=== PATIENT | female | born 1990 | race Caucasian/White ===

== ENCOUNTER 2017-12-22 14:14 | Outpatient (CLI) | payer BC ==
[~2017-12-22] VITALS: Ht 167.6 cm; Wt 94.0 kg
[2017-12-22 14:31] VITALS: BP 133/80
[2017-12-22] MEDS ORDERED: PRENATAL TABLE1 EAC3 PO (15:19)
[2017-12-22 15:36] LABS: APPEARANCE SL.HAZY ((CLEAR)); BILIRUBIN NEGATIVE; BLOOD NEGATIVE; COLOR YELLOW ((YELLOW)); GLUCOSE (STRIP) 50; KETONES NEGATIVE; LEUKOCYTES MODERATE; NITRITE NEGATIVE; PROTEIN (STRIP) NEGATIVE; SPECIFIC GRAVITY 1.016 (1.000-1.030); UROBILINOGEN 0.2 MG/DL (0.2-1.0)
[2017-12-22 15:53] LABS: BACTERIA RARE /HPF; EPITHELIAL CELLS 1+ /HPF; MUCUS TRACE /LPF; UCUL ADDED? YES
[2017-12-22 16:04] VITALS: BP 130/73
[2017-12-22 18:25] VITALS: BP 117/77
[2017-12-22 20:30] VITALS: BP 125/76
== END 2017-12-22 21:30 | disposition home or self-care (01) ==
LOC: LDRP-OP 14:14 → 2WEST 14:15 → LDRP-OP 02-02 16:05
PROVIDERS: Advanced Practice Midwife
DX: O36.8130 Decreased fetal movements, third trimester, not applicable or unspecified (principal); R10.31 Right lower quadrant pain; Z3A.38 38 weeks gestation of pregnancy
CPT/HCPCS: 59025; 76815; 76818; 81003; 87086; G0378; J7120

== ENCOUNTER 2018-01-11 09:48 | Inpatient (IN) | payer BC ==
[~2018-01-11] VITALS: Ht 167.6 cm; Wt 95.7 kg
[2018-01-11] VITALS (27 sets, daily range): BP systolic 109–148; BP diastolic 63–97
[~2018-01-11 09:48] MED LIST: PRENATAL TABLE1 EAC3 PO
[2018-01-11 11:50] LABS: BASOPHIL (%) 0.2 % (0-1); EOSINOPHIL COUNT 0.1 K/uL (0-0.3); HEMATOCRIT 40.8 % (36.0-46.0); HEMOGLOBIN 14.4 G/DL (11.9-15.5); IMMATURE GRANULOCYTE (%) 0.6 % (0.0-0.7); LYMPHOCYTE COUNT 1.3 K/uL (1.0-2.8); MCH 32.7 PG (29.0-34.0); MCHC 35.3 G/DL (30.0-36.0); MCV 92.7 FL (83-99); MONOCYTE (%) 6.2 % (3-12); MONOCYTE COUNT 0.8 K/uL (0-0.8); NEUTROPHIL COUNT 10.3 K/uL (1.8-6.4); PLATELET COUNT 152 K/uL (156-360); RBC DIS.WIDTH-SD 44.3 % (39-53); WHITE BLOOD COUNT 12.5 K/uL (4.1-10.2)
[2018-01-11 14:15] LABS: BENZODIAZEPINES, URINE SCREEN Negative (200 ng/mL)
[2018-01-12] VITALS (9 sets, daily range): BP systolic 109–121; BP diastolic 58–76
[2018-01-13 02:24] VITALS: BP 107/66
[2018-01-13 07:04] LABS: BASOPHIL (%) 0.3 % (0-1); EOSINOPHIL (%) 1.3 % (0-5); EOSINOPHIL COUNT 0.2 K/uL (0-0.3); HEMATOCRIT 32.6 % (36.0-46.0); IMMATURE GRANULOCYTE (%) 0.6 % (0.0-0.7); LYMPHOCYTE (%) 14.1 % (15-42); LYMPHOCYTE COUNT 1.8 K/uL (1.0-2.8); MCH 32.8 PG (29.0-34.0); MCHC 34.7 G/DL (30.0-36.0); MCV 94.5 FL (83-99); MONOCYTE (%) 6.4 % (3-12); MONOCYTE COUNT 0.8 K/uL (0-0.8); NEUTROPHIL (%) 77.3 % (45-76); NEUTROPHIL COUNT 9.7 K/uL (1.8-6.4); PLATELET COUNT 114 K/uL (156-360); RBC DIS.WIDTH-CV 13.1 % (11.8-14.6); RBC DIS.WIDTH-SD 44.9 % (39-53); WHITE BLOOD COUNT 12.5 K/uL (4.1-10.2)
[2018-01-13 07:08] LABS: HEMOGLOBIN 11.3 G/DL (11.9-15.5); RED BLOOD COUNT 3.45 M/uL (3.80-5.20)
[2018-01-13 07:23] VITALS: BP 109/56
[2018-01-13 10:28] VITALS: BP 133/68
[2018-01-13] MEDS ORDERED: IBUPROFEN800 MG PO (10:39)
[2018-01-13] MEDS ORDERED: ENDOCET 5-3251 EACH PO (10:39)
== END 2018-01-13 13:20 | disposition home or self-care (01) | DRG 766 ==
LOC: LDRP-OP 09:48 → 2WEST 09:49 → LDRP-OP 02-02 00:58
PROVIDERS: Advanced Practice Midwife; Obstetrics & Gynecology
PROC: 3E0R3BZ Introduction of Anesthetic Agent into Spinal Canal, Percutaneous Approach (ICD-10-PCS; 2018-01-11)
PROC: 00HU33Z Insertion of Infusion Device into Spinal Canal, Percutaneous Approach (ICD-10-PCS; 2018-01-11)
PROC: 10D00Z1 Extraction of Products of Conception, Low, Open Approach (ICD-10-PCS; principal; 2018-01-12)
DX: O76 Abnormality in fetal heart rate and rhythm complicating labor and delivery (principal); O77.0 Labor and delivery complicated by meconium in amniotic fluid; O69.81X0 Labor and delivery complicated by cord around neck, without compression, not applicable or unspecified; O48.0 Post-term pregnancy; Z3A.41 41 weeks gestation of pregnancy; Z37.0 Single live birth; E28.2 Polycystic ovarian syndrome; O99.214 Obesity complicating childbirth; E66.9 Obesity, unspecified; Z68.30 Body mass index [BMI] 30.0-30.9, adult; Z80.6 Family history of leukemia
CPT/HCPCS: 80306 90; 85025; 86850; 86900; 86901; 88307; C1755; G0378; J0690; J1050; J2274; J2405; J3010; J7120